=== PATIENT | female | born 1995 | race African-American/Black ===

== ENCOUNTER 2021-01-13 16:14 | Emergency (ER) | payer BC, OTHER ==
[2021-01-13] MEDS ORDERED: IBUPROFEN 600 MG TABLET (FP) PO ONE ×2 (16:50→17:29)
[2021-01-13] MEDS ORDERED: ACETAMINOPHEN 325 MG TABLET (FP) PO ONE (16:51)
[2021-01-13] MEDS ORDERED: SODIUM CHLORIDE 0.9% 500 ML INFUS.BAG IV ONE (17:00)
[2021-01-13 17:01] VITALS: BMI 32.8
[2021-01-13] MEDS ORDERED: ACETAMINOPHEN 325 MG TABLET (FP) ONE (17:29)
[2021-01-13 18:50] VITALS: BP 125/68; PULSE 93; TEMP 99.7
== END 2021-01-13 19:07 | disposition home or self-care (01) ==
LOC: FER 16:14
DX: R05.1 Acute cough (principal); R50.9 Fever, unspecified; J02.9 Acute pharyngitis, unspecified
CPT/HCPCS: 87804; 87807; 99283-25; C9803; U0003; U0005

== ENCOUNTER 2021-11-03 04:19 | Day surgery (SDC) | payer BC ==
[2021-11-02 11:46] VITALS: BMI 32.1
[2021-11-03] MEDS ORDERED: BUPIVACAINE HCL/PF 0.5% (5MG/ML) 10 ML VIAL ONE ×2 (08:12→11:54)
[2021-11-03] MEDS ORDERED: LIDOCAINE 1%/EPI 1:100000 (20 ML MULTI DOSE VIAL) ONE (08:12)
[2021-11-03] MEDS ORDERED: INDOCYANINE GREEN 25 MG/10 ML VIAL IVPUSH ONE ×2 (08:38→08:42)
[2021-11-03] MEDS ORDERED: LIDOCAINE HCL/PF (2%) 40 MG/2 ML VIAL ONE (10:56)
[2021-11-03] MEDS ORDERED: ONDANSETRON 4 MG/2 ML VIAL ONE (10:56)
[2021-11-03] MEDS ORDERED: DEXAMETHASONE SOD PHOSPHATE 4 MG/1 ML VIAL ONE (10:56)
[2021-11-03] MEDS ORDERED: ROCURONIUM BROMIDE 50 MG/5 ML SYRINGE ONE (10:57)
[2021-11-03] MEDS ORDERED: PROPOFOL 20 ML ONE ×2 (10:57→12:50)
[2021-11-03] MEDS ORDERED: MIDAZOLAM HCL 2 MG/2 ML SINGLE DOSE VIAL ONE (10:57)
[2021-11-03] MEDS ORDERED: ceFAZolin SODIUM 1 GM VIAL IVPB ONE (11:05)
[2021-11-03] MEDS ORDERED: ceFAZolin SODIUM 1 GM VIAL ONE (11:07)
[2021-11-03] MEDS ORDERED: BUPIVACAINE HCL/PF 0.5% (5 MG/ML) 30 ML VIAL IJ ONE ×3 (11:22)
[2021-11-03] MEDS ORDERED: SEVOFLURANE 250 ML BTL ONE (11:22)
[2021-11-03] MEDS ORDERED: ACETAMINOPHEN INJECTION 100 ML IVPB ONE (11:43)
[2021-11-03] MEDS ORDERED: GLYCOPYRROLATE 0.2 MG/1 ML VIAL ONE (12:34)
[2021-11-03] MEDS ORDERED: NEOSTIGMINE METHYLSULFATE 0.5 MG/ML - 10 ML MDV ONE (12:34)
[2021-11-03] MEDS ORDERED: ONDANSETRON 4 MG/2 ML VIAL IVPUSH PRN (12:55)
[2021-11-03] MEDS ORDERED: LACTATED RINGERS SOLUTION 1,000 ML IV SCH (13:00)
[2021-11-03 16:56] VITALS: BP 105/59; PULSE 91; RESP 18; TEMP 98.8
== END 2021-11-03 17:00 | disposition home or self-care (01) ==
LOC: JASUSAT 04:19
PROVIDERS: ATTEND Obstetrics & Gynecology Gynecologic Oncology
PROC: 0UT54ZZ Resection of Right Fallopian Tube, Percutaneous Endoscopic Approach (ICD-10-PCS; 2021-11-03)
PROC: 0UT04ZZ Resection of Right Ovary, Percutaneous Endoscopic Approach (ICD-10-PCS; principal; 2021-11-03 10:00)
DX: N83.201 Unspecified ovarian cyst, right side (principal)
CPT/HCPCS: 81025; 86850; 86900; 86901; 88307-TC; 88331-TC; 88341-TC; 88342-TC; 94760